=== PATIENT | male | born 1995 | race Caucasian/White ===

== ENCOUNTER 2018-10-27 13:04 | Emergency (ER) | payer OTHER ==
[~2018-10-27] VITALS: Ht 188 cm; Wt 99.8 kg
[2018-10-27 13:24] VITALS: BP_SYST 124
[2018-10-27] MEDS ORDERED: CARISOPRODOL 350 MG TABLET PO ONE (13:45)
[2018-10-27] MEDS ORDERED: KETOROLAC TROMETHAMINE 60 MG/2 ML VIAL IM ONE (13:45)
[2018-10-27] MEDS ORDERED: DIAZEPAM 10 MG/2 ML DISP.SYRIN IM ONE (13:45)
[2018-10-27 14:12] VITALS: BP_SYST 128
== END 2018-10-27 14:12 | disposition home or self-care (01) ==
LOC: SED 13:04
DX: S39.012A Strain of muscle, fascia and tendon of lower back, initial encounter (principal); R03.0 Elevated blood-pressure reading, without diagnosis of hypertension; J45.909 Unspecified asthma, uncomplicated; X58.XXXA Exposure to other specified factors, initial encounter; Y93.89 Activity, other specified; Y92.89 Other specified places as the place of occurrence of the external cause; Y99.8 Other external cause status
CPT/HCPCS: 96372; 99283; J1885